=== PATIENT | male | born 1960 ===

== ENCOUNTER 2017-11-28 18:31 | Observation (INO) | payer BC ==
[2017-11-28] MEDS ORDERED: Sodium Chloride 0.9% 1,000 ML IV STA ×2 (18:42→20:27)
[2017-11-28 19:11] LABS: BASO # 0.04 K/mm3 (0.0-2.0); BASO % 0.7 % (0.0-3.0); GRAN # 3.21 (1.4-6.5); GRAN % 56.2 % (50.0-68.0); LYMPH # 2.1 (1.2-3.4); LYMPH % 36.5 % (22.0-35.0); MEAN CELL VOLUME 92.9 fl (80.0-105.0); MEAN CORPUSCULAR HGB CONC 35.5 g/dl (31.0-37.0); MEAN PLATELET VOLUME 10.8 fl (7.0-11.0); MONO # 0.4 (0.1-0.6); MONO % 6.6 % (1.0-6.0); RBC 4.24 10^6/uL (3.5-6.1); RED CELL DISTRIBUTION WIDTH 13.4 % (11.5-14.5); WHITE BLOOD COUNT 5.7 10^3/ul (4.5-11.0)
[2017-11-28 19:22] LABS: ALB/GLOB RATIO 1.4 (1.1-1.8); ALBUMIN 5.3 g/dL (3.0-4.8); ALT/SGPT 118 U/L (7-56); AST/SGOT 111 U/L (17-59); BLOOD UREA NITROGEN 19 mg/dL (7-21); CALCIUM 8.5 mg/dL (8.4-10.5); GFR AFRICAN-AMERICAN > 60; GFR NON-AFRICAN AMERICAN > 60
[2017-11-28 19:24] LABS: INR 0.98 (0.93-1.08); PARTIAL THROMBOPLASTIN TIME 29.4 Seconds (25.1-36.5); PROTHROMBIN TIME 11.2 SECONDS (9.4-12.5)
[2017-11-28] MEDS ORDERED: Multivitamin (MVI) 10 ML, Thiamine 100 MG, Folic Acid 1 MG in Sodium Chloride 0.9% 1,00... IV ONE (19:29)
[2017-11-28 19:33] LABS: TROPONIN I 0.02 ng/mL
--- NOTE | 2017-11-28 21:03 | ED PDOC ---
"Arrival/HPI - General Chief Complaint: GI Problem Time Seen by Provider: 11/28/17 18:33 Historian: Patient - History of Present Illness Narrative History of Present Illness (Text): 11/28/17 21:00 57yr old male presents today with chest pain and vomiting. pt states he has been drinking for the past 3 days and hasnt been eating anything. pt states he has been depressed and doesnt want to live anymore. pt states he hasnt eaten in 3 days. pt denies fever/chills. denies abdominal pain. pt states he drank a pint of alcohol today. no dizziness or weakness. pt denies urinary symptoms. no back pain. pt complaining of nausea and vomiting. no trauma or injury. pt denies vomiting blood. denies bloody stools. no other complaints . Time/Duration: Other (7am) Quality: Pressure (in chest) Severity Level: Mild Past Medical History - Provider Review Nursing Documentation Reviewed: Yes - Travel History Have you recently traveled outside [place] w/in the past 3 mons?: No - Tetanus Immunization Tetanus Immunization: Unknown - Cardiac Hx Cardiac Disorders: Yes Hx Hypertension: Yes - Pulmonary Hx Respiratory Disorders: No - Neurological Hx Neurological Disorder: No - HEENT Hx HEENT Disorder: No - Renal Hx Renal Disorder: No - Endocrine/Metabolic Hx Endocrine Disorders: Yes Hx Diabetes Mellitus Type 2: Yes - Hematological/Oncological Hx Blood Disorders: No - Integumentary Hx Dermatological Disorder: No - Musculoskeletal/Rheumatological Hx Musculoskeletal Disorders: No - Gastrointestinal Hx Gastrointestinal Disorders: No - Genitourinary/Gynecological Hx Genitourinary Disorders: No - Psychiatric Hx Psychophysiologic Disorder: No Hx Substance Use: No - Surgical History Other/Comment: FACIAL Family/Social History - Physician Review Nursing Documentation Reviewed: Yes Family/Social History: Unknown Family HX Smoking Status: Never Smoked Hx Alcohol Use: Yes Frequency of alcohol use: Daily Hx Substance Use: No Allergies/Home Meds Allergies/Adverse Reactions: Allergies No Known Allergies Allergy (Verified 11/28/17 18:33) Home Medications: Home Meds Medication Instructions Recorded Confirmed Unobtainable 11/28/17 11/28/17 Review of Systems - Review of Systems Constitutional: absent: Fatigue, Fevers ENT: absent: Sore Throat, Sinus Congestion Respiratory: absent: SOB, Cough Cardiovascular: Chest Pain. absent: Palpitations, Syncope Gastrointestinal: Nausea, Vomiting. absent: Abdominal Pain, Constipation, Diarrhea Genitourinary Male: absent: Dysuria, Frequency, Hematuria, Urinary Output Changes Musculoskeletal: absent: Arthralgias, Back Pain, Neck Pain Skin: absent: Rash, Pruritis Neurological: absent: Headache, Dizziness Psychiatric: Depression, Suicidal Ideation. absent: Anxiety Physical Exam Vital Signs Reviewed: Yes Vital Signs Temp Pulse Resp BP Pulse Ox 11/28/17 21:13 99 H 18 146/81 100 11/28/17 18:38 98.7 F 110 H 23 147/77 100 Temperature: Afebrile Blood Pressure: Normal Pulse: Tachycardic Respiratory Rate: Normal Appearance: Positive for: Well-Appearing, Non-Toxic, Comfortable Pain Distress: None Mental Status: Positive for: Alert and Oriented X 3 - Systems Exam Head: Present: Atraumatic Pupils: Present: PERRL Extroacular Muscles: Present: EOMI Conjunctiva: Present: Injected Mouth: Present: Moist Mucous Membranes Neck: Present: Normal Range of Motion, Trachea Midline Respiratory/Chest: Present: Clear to Auscultation, Good Air Exchange. No: Respiratory Distress, Accessory Muscle Use, Wheezes, Rhonchi, Tachypneic Cardiovascular: Present: Tachycardic. No: Murmurs Abdomen: No: Tenderness, Distention, Normal Bowel Sounds, Rebound, Guarding Back: Present: Normal Inspection. No: CVA Tenderness, Midline Tenderness, Paraspinal Tenderness Upper Extremity: Present: Normal ROM Lower Extremity: Present: Normal ROM Neurological: Present: GCS=15, Speech Normal Skin: Present: Warm, Dry Psychiatric: Present: Alert, Oriented x 3, Depressed Mood Medical Decision Making ED Course and Treatment: 11/28/17 21:04 57yr old male with nausea and vomiting and chest pain s/p drinking ETOH and not eating for 3 days. pt immediately placed on 1;1 for SI. fingerstick; 130 ekg; sinus tachycardia with PVCs at [address] elevations normal axis QTc 506 cbc; wnl cmp; glucose 142 trop; 0.02 ETOH; 274 cxr; no infiltrate, no effusion, no free air, no widened mediastinum Case discussed in depth with dr. mendez. pt with anion gap 37, c02 15; will check ABG. UA: pending ABG: lactate: pending ; respiratory therapist unable to get ABG at this time. pt given 2 doses of zofran, 10mg of reglan to control nausea and vomiting. 1mg ativan IV given 11/28/17 21:59 pt reassessment; pt feeling much better. vitals stable. case discussed with dr. Nair; accepts admission for alcoholic ketoacidosis, intractable vomiting, chest pain, pending withdrawals,depression consult: dr. oglesby, dr. dominique, dr. ashby. abd pelvis ct; FINDINGS: Right lower lung hazy opacity. Right lower lung platelike atelectasis. The liver is decreased in attenuation consistent with fatty infiltration. The spleen, pancreas, adrenals are normal. No gallstones identified. Bilateral nonspecific perinephric stranding. Tiny 6 mm exophytic left renal lesion too small to accurately characterize, however probable cyst. The bowel appears normal. DAIJA ABREU | Final Radiology Report CONFIDENTIALITY STATEMENT This report is intended only for use by the referring physician, and only in accordance with law. If you received this in error, call [phone]. Page 2 of 2 A normal appendix is identified coronal images 54 through 56. No aortic aneurysm or dissection. IMPRESSION: Possible early developing right lower lung infiltrate. Clinical correlation recommended. blood cultures added. rocephin and zithromax given IV impression; alcoholic ketoacidosis, intractable vomiting, chest pain, pending withdrawals, depression admit to tele. Reassessment Condition: Re-examined, Improved - Lab Interpretations Lab Results: 11/28/17 18:59 11/28/17 18:59 Lab Results 11/28/17 21:16: Urine Color Yellow, Urine Appearance Clear, Urine pH 6.0, Ur Specific [place] 1.025, Urine Protein 100 H, Urine Glucose (UA) Negative, Urine Ketones 40 H, Urine Blood Small H, Urine Nitrate Negative, Urine Bilirubin Small H, Urine Urobilinogen 0.2, Ur Leukocyte Esterase Negative, Urine RBC 0 - 2 , Urine WBC Negative, Ur Epithelial Cells 0 - 2 11/28/17 18:59: Lipase 86 11/28/17 18:59: WBC 5.7 D, RBC 4.24, Hgb 14.0, Hct 39.4 L, MCV 92.9, MCH 33.0, MCHC 35.5, RDW 13.4, Plt Count 229, MPV 10.8, Gran % 56.2, Lymph % (Auto) 36.5 H , Owen % (Auto) 6.6 H, Eos % (Auto) 0.0 L, Baso % (Auto) 0.7, Gran # 3.21, Lymph # (Auto) 2.1, Owen # (Auto) 0.4, Eos # (Auto) 0.0, Baso # (Auto) 0.04 11/28/17 18:59: Alcohol, Quantitative 274 H 11/28/17 18:59: Sodium 141, Potassium 3.7, Chloride 94 L, Carbon Dioxide 15 L, Anion Gap 37 H, BUN 19, Creatinine 1.2, Est GFR ( Amer) > 60, Est GFR ( Non-Af Amer) > 60, Random Glucose 142 H, Calcium 8.5, Total Bilirubin 0.9, AST 111 H, ALT 118 H, Alkaline Phosphatase 82, Lactate Dehydrogenase 601, Total Creatine Kinase 459 H, CK-MB (CK-2) 2.0, CK-MB (CK-2) % Cancelled, Troponin I 0.02, Total Protein 9.0 H, Albumin 5.3 H, Globulin 3.8, Albumin/Globulin Ratio 1.4 11/28/17 18:59: PT 11.2, INR 0.98, APTT 29.4 11/28/17 18:58: POC Glucose (mg/dL) 130 H - RAD Interpretation Radiology Orders: 11/28/17 18:41 CHEST PORTABLE [RAD] Stat - Medication Orders Current Medication Orders: Ceftriaxone Sodium (Rocephin 1 Gram Ivpb) 1 gm in 100 mls @ 200 mls/hr IVPB STAT STA PRN Reason: Protocol Stop: 11/29/17 00:27 Azithromycin (Zithromax 500mg In Ns) 500 mg in 250 mls @ 167 mls/hr IVPB STAT STA PRN Reason: Protocol Stop: 11/29/17 01:27 Discontinued Medications Aspirin (Aspirin) 325 mg PO STAT STA Stop: 11/28/17 22:14 Sodium Chloride (Sodium Chloride 0.9%) 1,000 mls @ 999 mls/hr IV .Q1H1M STA Stop: 11/28/17 19:42 Last Admin: 11/28/17 19:05 Dose: 999 mls/hr eMAR Start Stop Document 11/28/17 19:05 RD (Rec: 11/28/17 19:05 RD [id number]) Intravenous Solution Start Date 11/28/17 Start Time 19:05 End Date 11/28/17 End time 20:05 Total Infusion Time 60 Multivitamins/Vitamin C 10 ml/Thiamine HCl 100 mg/ Folic Acid 1 mg/ Sodium Chloride 1,011.2 mls @ 1,000 mls/hr IV .Q1H1M ONE Stop: 11/28/17 20:29 Last Admin: 11/28/17 20:20 Dose: 1,000 mls/hr eMAR Start Stop Document 11/28/17 20:20 SH (Rec: 11/28/17 20:20 SH [id number]) Intravenous Solution Start Date 11/28/17 Start Time 20:20 Sodium Chloride (Sodium Chloride 0.9%) 1,000 mls @ 999 mls/hr IV .Q1H1M STA Stop: 11/28/17 21:27 Last Admin: 11/28/17 22:21 Dose: 999 mls/hr eMAR Start Stop Document 11/28/17 22:21 CARMEN (Rec: 11/28/17 22:21 CARMEN [id number]) Intravenous Solution Start Date 11/28/17 Start Time 22:21 End Date 11/28/17 End time 23:21 Total Infusion Time 60 Metoclopramide HCl (Reglan) 10 mg IVP STAT STA Stop: 11/28/17 20:28 Last Admin: 11/28/17 22:20 Dose: 10 mg IVP Administration Document 11/28/17 22:20 CARMEN (Rec: 11/28/17 22:20 CARMEN [id number]) Charges for Administration # of IVP Administrations 1 Ondansetron HCl (Zofran Inj) 4 mg IVP STAT STA Stop: 11/28/17 18:41 Last Admin: 11/28/17 19:04 Dose: 4 mg IVP Administration Document 11/28/17 19:04 RD (Rec: 11/28/17 19:04 RD [id number]) Charges for Administration # of IVP Administrations 1 Ondansetron HCl (Zofran Inj) 4 mg IVP STAT STA Stop: 11/28/17 19:54 Last Admin: 11/28/17 20:12 Dose: 4 mg IVP Administration Document 11/28/17 20:12 SH (Rec: 11/28/17 20:12 [id number]) Charges for Administration # of IVP Administrations 1 Pantoprazole Sodium (Protonix Inj) 40 mg IVP STAT STA Stop: 11/28/17 18:41 Last Admin: 11/28/17 19:04 Dose: 40 mg IVP Administration Document 11/28/17 19:04 RD (Rec: 11/28/17 19:04 RD [id number]) Charges for Administration # of IVP Administrations 1 Disposition/Present on Arrival - Present on Arrival Any Indicators Present on Arrival: Yes History of DVT/PE: No History of Uncontrolled Diabetes: Yes Urinary Catheter: No History of Decub. Ulcer: No History Surgical Site Infection Following: None - Disposition Have Diagnosis and Disposition been Completed?: Yes Diagnosis: Alcoholic ketoacidosis, Chest pain, Depression Disposition: HOSPITALIZED Disposition Time: 21:12 Patient Plan: Admission Patient Problems: Current Active Problems Problem Status Onset Alcoholic ketoacidosis Acute Chest pain Acute Depression Acute Condition: FAIR"
[2017-11-28 21:22] LABS: URINE BILIRUBIN SMALL (NEGATIVE); URINE BLOOD SMALL (NEGATIVE); URINE GLUCOSE (UA) NEGATIVE (NEGATIVE); URINE LEUKOCYTE ESTERASE NEGATIVE Leu/uL (NEGATIVE); URINE PROTEIN 100 mg/dL (<30 mg/dL); URINE UROBILINOGEN 0.2 E.U./dL (<1 E.U./dL)
[2017-11-28 21:24] LABS: URINE APPEARANCE CLEAR (CLEAR); URINE COLOR YELLOW (YELLOW)
[2017-11-28 21:27] LABS: URINE EPITHELIAL CELLS 0 - 2 /hpf (0-5); URINE RBC 0 - 2 /hpf (0-2); URINE WBC NEGATIVE /hpf (0-6)
--- NOTE | 2017-11-28 23:54 | CT ---
EXAM: CT Abdomen and Pelvis Without Intravenous Contrast EXAM DATE/TIME: 11/28/2017 10:31 PM CLINICAL HISTORY: 57 years old, male; Signs and symptoms; Vomiting; Patient HX: Vomiting ETOH; Additional info: Intractable vomiting TECHNIQUE: Axial computed tomography images of the abdomen and pelvis without intravenous contrast. All CT scans at this facility use one or more dose reduction techniques, viz.: automated exposure control; ma/kV adjustment per patient size (including targeted exams where dose is matched to indication; i.e. head); or iterative reconstruction technique. Coronal and sagittal reformatted images were created and reviewed. COMPARISON: No relevant prior studies available. FINDINGS: Right lower lung hazy opacity. Right lower lung platelike atelectasis. The liver is decreased in attenuation consistent with fatty infiltration. The spleen, pancreas, adrenals are normal. No gallstones identified. Bilateral nonspecific perinephric stranding. Tiny 6 mm exophytic left renal lesion too small to accurately characterize, however probable cyst. The bowel appears normal. A normal appendix is identified coronal images 54 through 56. No aortic aneurysm or dissection. IMPRESSION: Possible early developing right lower lung infiltrate. Clinical correlation recommended.
[2017-11-28] MEDS ORDERED: Azithromycin 500MG/NS 250ml 500 MG/250 ML BAG IVPB STA (23:58)
[2017-11-28] MEDS ORDERED: cefTRIAXone 1 gm 1 GM/100 ML BAG IVPB STA (23:58)
--- NOTE | 2017-11-29 08:24 | CP.PCM.CON ---
<Tran Bryant - Last Filed: 11/29/17 13:16> History of Present Illness - History of Present Illness History of Present Illness: Initial PGY4 GI Consult Note Raffaele Bird is a 57M w/ hx of DM and HTN who presented to the ED due to depression and intractable vomiting. Pt states that he has been depressed for the past 3 weeks and had started consuming 1 pint of alcohol daily. He notes no consumption of food in the last 3 days prior to arrival to the ED. He denied any abd pain. He noted that his emesis was bilous and non-bloody including coffee-grounds. Pt states that prior to 3 weeks ago, he only drank socially. He denies any previous colonoscopy or endoscopy. He denies any admission for liver related or pancreas related issues. He denies any melena or bright red blood per rectum. He is currently alert and oriented x3 and denies any further episodes of emesis since admission. PMHx: DM, HL, HTN? PSHx: Denies Social Hx: 1 pint of vodka daily for 3 weeks, denies smoking or illicit drug use Family Hx: Reviewed; denies any GI malignancy Endo Hx: None ROS: 12 point ROS conducted, neg other than above Past Patient History - Tetanus Immunizations Tetanus Immunization: Unknown - Past Social History Smoking Status: Never Smoked - CARDIAC Hx Cardiac Disorders: Yes Hx Hypertension: Yes - PULMONARY Hx Respiratory Disorders: No - NEUROLOGICAL Hx Neurological Disorder: No - HEENT Hx HEENT Problems: No - RENAL Hx Chronic Kidney Disease: No - ENDOCRINE/METABOLIC Hx Endocrine Disorders: Yes Hx Diabetes Mellitus Type 2: Yes - HEMATOLOGICAL/ONCOLOGICAL Hx Blood Disorders: No - INTEGUMENTARY Hx Dermatological Problems: No - MUSCULOSKELETAL/RHEUMATOLOGICAL Hx Musculoskeletal Disorders: No Hx Falls: No - GASTROINTESTINAL Hx Gastrointestinal Disorders: No - GENITOURINARY/GYNECOLOGICAL Hx Genitourinary Disorders: No - PSYCHIATRIC Hx Psychophysiologic Disorder: No - SURGICAL HISTORY Hx Surgeries: No Other/Comment: FACIAL Meds Allergies/Adverse Reactions: Allergies Allergy/AdvReac Type Severity Reaction Status Date / Time No Known Allergies Allergy Verified 11/28/17 18:33 Physical Exam - Constitutional Appears: Well, No Acute Distress - Head Exam Head Exam: ATRAUMATIC, NORMOCEPHALIC - Eye Exam Eye Exam: Normal appearance - ENT Exam ENT Exam: Mucous Membranes Moist, Normal Exam - Neck Exam Neck exam: Positive for: Normal Inspection - Respiratory Exam Respiratory Exam: Clear to Auscultation Bilateral, NORMAL BREATHING PATTERN. absent: Rales, Rhonchi, Wheezes, Respiratory Distress - Cardiovascular Exam Cardiovascular Exam: REGULAR RHYTHM, +S1, +S2 - GI/Abdominal Exam GI & Abdominal Exam: Normal Bowel Sounds, Soft. absent: Diminished Bowel Sounds , Distended, Guarding, Hernia, Organomegaly, Pulsatile Mass, Rebound, Rigid, Tenderness - Extremities Exam Extremities exam: Negative for: joint swelling, pedal edema - Neurological Exam Neurological exam: Alert, Oriented x3 - Psychiatric Exam Psychiatric exam: Normal Affect, Normal Mood - Skin Skin Exam: Dry, Intact, Normal Color, Warm Results - Vital Signs Recent Vital Signs: Last Vital Signs Temp 98.3 F 11/29/17 06:00 Pulse 100 H 11/29/17 06:00 Resp 18 11/29/17 06:00 BP 138/76 11/29/17 06:00 Pulse Ox 97 11/29/17 06:00 - Labs Result Diagrams: 11/28/17 18:59 11/28/17 18:59 Labs: Laboratory Results - last 24 hr 11/29/17 11/29/17 11/29/17 00:08 00:35 07:51 POC Glucose (mg/dL) 93 87 Blood Type A POSITIVE Antibody Screen Negative BBK History Checked No verified bt Assessment & Plan - Assessment and Plan (Free Text) Assessment: Raffaele Bird is a 57M w/ hx of DM who presents to the ER with complaints of depression and intractable vomiting Tranaminemia likely multifactorial: rhabdo, etoh; r/o viral hep and autoimmune Alcohol intoxication Alcohol abuse Depression Plan: -watch for alcohol withdrawl -feed as tolerated, would check phos and Mg to watch for refeeding syndrome -alcohol withdrawl protocol -will send of viral hep and autoimmune serologies -abd CT noted: possible PNA and fatty infil of liver -continue to IV hydrate -consulted on alcohol cessation -recommend psych consult -will need oupt screening colonoscopy Will D/W Dr. Washburn <Leyla Washburn - Last Filed: 11/29/17 18:50> Meds - Medications Medications: Current Medications Aspirin (Aspirin Chewable) 81 mg PO DAILY [facility] Last Admin: 11/29/17 12:27 Dose: 81 mg Chlordiazepoxide (Librium) 25 mg PO Q8 PRN; Protocol PRN Reason: Agitation Enoxaparin Sodium (Lovenox) 40 mg SC DAILY [facility] PRN Reason: Protocol Last Admin: 11/29/17 12:27 Dose: 40 mg Escitalopram Oxalate (Lexapro) 5 mg PO DAILY [facility] Folic Acid 1 mg/ Thiamine HCl 100 mg/ Multivitamins/Vitamin C 10 ml/ Dextrose 1 ,011.2 mls @ 50 mls/hr IV .[id number] [facility] Last Admin: 11/29/17 12:38 Dose: 50 mls/hr Ceftriaxone Sodium (Rocephin 1 Gram Ivpb) 1 gm in 100 mls @ 100 mls/hr IVPB DAILY [facility] PRN Reason: Protocol Last Admin: 11/29/17 12:27 Dose: 100 mls/hr Azithromycin (Zithromax 500mg In Ns) 500 mg in 250 mls @ 167 mls/hr IVPB DAILY [facility] PRN Reason: Protocol Last Admin: 11/29/17 13:25 Dose: 167 mls/hr Metoprolol Tartrate (Lopressor) 12.5 mg PO BID [facility] Last Admin: 11/29/17 17:18 Dose: 12.5 mg Ondansetron HCl (Zofran Inj) 4 mg IVP Q6H PRN PRN Reason: Nausea/Vomiting Results - Vital Signs Recent Vital Signs: Last Vital Signs Temp 98.3 F 11/29/17 12:00 Pulse 100 H 11/29/17 14:00 Resp 18 11/29/17 12:00 BP 133/77 11/29/17 12:00 Pulse Ox 97 11/29/17 06:00 - Labs Result Diagrams: 11/28/17 18:59 11/28/17 18:59 Labs: Laboratory Results - last 24 hr 11/29/17 11/29/17 11/29/17 00:08 00:35 07:51 D-Dimer, Quantitative POC Glucose (mg/dL) 93 87 IgG Hepatitis A IgM Ab Hep Bs Antigen Hep Bs Antibody Hep B Core IgM Ab Hepatitis C Antibody Blood Type A POSITIVE Blood Type Confirm Antibody Screen Negative BBK History Checked No verified bt 11/29/17 11/29/17 11/29/17 08:10 09:00 09:00 D-Dimer, Quantitative POC Glucose (mg/dL) IgG 1033.6 Hepatitis A IgM Ab Negative Hep Bs Antigen Negative Hep Bs Antibody Hep B Core IgM Ab Negative Hepatitis C Antibody Negative Blood Type Blood Type Confirm A POSITIVE Antibody Screen BBK History Checked 11/29/17 11/29/17 11/29/17 09:00 11:53 12:45 D-Dimer, Quantitative 255 H POC Glucose (mg/dL) 124 H IgG Hepatitis A IgM Ab Hep Bs Antigen Hep Bs Antibody Negative Hep B Core IgM Ab Hepatitis C Antibody Blood Type Blood Type Confirm Antibody Screen BBK History Checked 11/29/17 17:01 D-Dimer, Quantitative POC Glucose (mg/dL) 173 H IgG Hepatitis A IgM Ab Hep Bs Antigen Hep Bs Antibody Hep B Core IgM Ab Hepatitis C Antibody Blood Type Blood Type Confirm Antibody Screen BBK History Checked Attending/Attestation - Attestation I have personally seen and examined this patient.: Yes I have fully participated in the care of the patient.: Yes I have reviewed all pertinent clinical information: Yes Notes (Text): 11/29/17 18:46 57 yr old M with history of DM who presents to the ER with complaints of depression and intractable vomiting admitted with alcohol intoxication and elevated LFT likely due to intoxication. Councelling regarding alcohol dependance and abuse and trend daily LFT. Regular diet as tolerated and vitamin repletion. Outpatient colonoscopy. Will sign off. Thank you for letting us participate in the care of your patient
--- NOTE | 2017-11-29 11:23 | RAD ---
HISTORY: Vomiting COMPARISON: Comparison chest 10/04/2017 FINDINGS: LUNGS: No active pulmonary disease. PLEURA: No significant pleural effusion identified, no pneumothorax apparent. CARDIOVASCULAR: Normal. OSSEOUS STRUCTURES: No significant abnormalities. VISUALIZED UPPER ABDOMEN: Normal. OTHER FINDINGS: None. IMPRESSION: No active disease.
[2017-11-29 11:49] LABS: HEPATITIS B SURFACE AG Negative (NEGATIVE)
[2017-11-29 11:55] LABS: HEPATITIS A IGM NEGATIVE (NEGATIVE); HEPATITIS B CORE AB NEGATIVE (NEGATIVE)
[2017-11-29 12:07] LABS: HEPATITIS C ANTIBODY NEGATIVE (NEGATIVE)
[2017-11-29] MEDS: Enoxaparin 40 mg Syringe SC SCH (12:27)
[2017-11-29] MEDS: cefTRIAXone 1 gm 1 GM/100 ML BAG IVPB SCH (12:27)
[2017-11-29] MEDS: Folic Acid 1 MG, Thiamine 100 MG, Multivitamin (MVI) 10 ML in Dextrose 5% In Water 1,00... IV SCH (12:38)
[2017-11-29] MEDS: Azithromycin 500MG/NS 250ml 500 MG/250 ML BAG IVPB SCH (13:25)
--- NOTE | 2017-11-29 17:09 | CARD ---
APPROVED REPORT EKG Measurement Heart [id number] <Conclusion> Sinus tachycardia with occasional premature ventricular complexes Nonspecific T wave abnormality Abnormal ECG
[2017-11-29 19:37] LABS: BARBITURATES, UR NEGATIVE (NEGATIVE); BENZODIAZEPINES, UR NEGATIVE (NEGATIVE); OPIATES, UR NEGATIVE (NEGATIVE); PHENCYCLIDINE, UR NEGATIVE (NEGATIVE)
--- NOTE | 2017-11-29 20:18 | HP ---
HISTORY OF PRESENT ILLNESS: I know Raffaele well from the office. He comes in after drinking lots of alcohol for the past 3 days. He has not eaten anything. He has been very depressed. Does not want to live anymore. He is now having intractable nausea and vomiting. He has been drinking a pint of alcohol daily, may be more. He is not in a good state mentally. PAST MEDICAL HISTORY: He has a past medical history of hypertension, diabetes. He had facial surgery in the past. FAMILY HISTORY: Hypertension and diabetes in the family. SOCIAL HISTORY: Never smoked. He does drink. He is an alcoholic. No substance abuse. ALLERGIES: NO KNOWN DRUG ALLERGIES. MEDICATIONS: He does not remember the medications at this time. REVIEW OF SYSTEMS: He is tired. He is weak. He is depressed. No acute vision or hearing changes. No sore throat. No shortness of breath or cough. Does have some chest discomfort. No palpitations now, but he had them earlier. He had nausea and vomiting, abdominal discomfort. No constipation or diarrhea. No problems urinating. No arthralgias or back pain. No rashes or ulcers. No headaches or dizziness. He is very depressed, suicidal, not doing well. PHYSICAL EXAMINATION: VITAL SIGNS: 98.7 temp; 110 pulse, it has been up to 120 now, I put him on metoprolol; respiratory rate is 23; 147/77 blood pressure, 100% O2 sat. GENERAL: He is alert and oriented x3. Depressed. Not in a good state of mind. HEENT: Extraocular muscles are intact. Pupils reactive to light. Throat is moist. NECK: Supple. HEART: Regular rate, tachy. LUNGS: Decreased breath sounds, but clear to auscultation. No wheezes, rhonchi or rales. Chest x-ray shows an early pneumonia. ABDOMEN: Soft, nontender. Positive bowel sounds. EXTREMITIES: Have no edema. NEUROLOGIC: GCS is 15. Cranial nerves II through XII grossly intact . Very tired, not expressive. He is alert and oriented x3. Depressed mood. SKIN: Warm and dry. No apparent rashes. LYMPHATICS: Thyroid midline. He is having a bunch of issues. LABORATORY DATA: He has a 274 alcohol level. He has a urine which showed negative. He has a 141 sodium, potassium 3.7, BUN 19, creatinine 1.2, GFR is greater than 60, sugar is 87, calcium is 8.5, total bili is 0.9, AST is 111, ALT is 118, and alk phos 82. Total creatine kinase is 459. Troponin I is 0.02. Total protein is 9, lipase is 86. INR is 0.98. He has got a 5.7 white count, 14 hemoglobin, 39.4 hematocrit with 229 platelets. He has an abdomen and pelvis CAT scan, which showed early developing right lower lobe infiltrate. IMPRESSION: He going to have consults with Cardiology, Gastroenterology and Psychiatry. He will be on Rocephin, Zithromax, IV fluids, banana bag, Lexapro, Librium, Zofran. Hopefully, he will improve. We will check his labs. Raffaele Bird has intractable nausea and vomiting, alcohol abuse, depression, tachycardia and pneumonia, right lower lobe. Sourav Nair DO
--- NOTE | 2017-11-29 23:09 | CON ---
CARDIOLOGY CONSULTATION REASON FOR CONSULTATION: Chest pain. HISTORY OF PRESENT ILLNESS: History was obtained from the patient and his at the bedside. The patient is a [id number] male who has been for the past 33 years, and now he has marital problems, he lost his job and he went on a drinking binge, presented because of alcohol intoxication and stated that he does not want to live anymore. He was initially placed on one-to-one watch; however, the patient reversed his intentions that he voiced earlier. The patient denied any suicidal ideation at this time. The patient denies any prior history of heart attack or stroke in the past. The patient does not recall any character of chest pain that he experienced earlier. The patient denies any associated diaphoresis or dizziness. There is no reported ventricular arrhythmia on the monitor. MEDICATIONS: The patient is on multivitamin infusion including folic acid, thiamine and vitamin C. The patient is on Lexapro 5 mg once a day, Librium 25 mg every 8 hours, Lopressor 12.5 mg twice a day, Rocephin 1 g intravenously daily, Zithromax 500 mg intravenously daily, Zofran 4 mg intravenously every 6 hours p.r.n. REVIEW OF SYSTEMS: No fever or chills. No seizures. No dizziness or syncope. SOCIAL HISTORY: Patient is , but he is going into marital problems with his . He lost his job recently, and he drinks, but he does not smoke. PHYSICAL EXAMINATION: GENERAL: The patient is a middle-aged male, who does not appear to be in acute distress. VITAL SIGNS: Blood pressure 138/76, heart rate 100, temperature 98.3, respirations 18. HEENT: Normocephalic. NECK: No JVD. CHEST: Clear. HEART: S1 and S2 regular. ABDOMEN: Soft. EXTREMITIES: No edema. LABORATORY DATA: SMA-7, sodium 141, potassium 3.7, chloride 94, CO2 of 15, glucose 142, BUN 19, creatinine 1.2. AST and ALT are 111 and 118 respectively. Lipase level is within normal limits. Hepatitis profile is negative. Alcohol level is 274 on admission. PT, PTT and INR are within normal limits. Abdomen and pelvis CT scan, possible early developing lower lobe infiltrate, clinical correlation is recommended. Chest x-ray is unremarkable. EKG reveals sinus tachycardia at the rate of 108, and PVC was noted. ASSESSMENT: 1. Chest pain, rule out myocardial infarction. 2. Rule out pulmonary infection. 3. Ethyl alcohol intoxication. 4. Uncontrolled diabetes mellitus. 5. Depression. RECOMMENDATIONS: Continue current intravenous vitamin infusion, continue Librium 25 mg every 8 hours, continue IV Rocephin and IV Zithromax, continue Lopressor 12.5 mg twice a day, start aspirin 81 mg once a day. Obtain one set of troponin and stat D-dimer. Repeat 12-lead EKG and obtain an echocardiogram. Obtain urine for drug screen. Micah Mahmood MD
[2017-11-30 06:38] VITALS: BP 141/71; PULSE 103; RESP 20; TEMP 98.2; O2SAT 97
[2017-11-30] MEDS: Folic Acid 1 MG, Thiamine 100 MG, Multivitamin (MVI) 10 ML in Dextrose 5% In Water 1,00... IV SCH (09:10)
[2017-11-30] MEDS: Enoxaparin 40 mg Syringe SC SCH (09:10)
[2017-11-30] MEDS: Azithromycin 500MG/NS 250ml 500 MG/250 ML BAG IVPB SCH (09:11)
[2017-11-30] MEDS: cefTRIAXone 1 gm 1 GM/100 ML BAG IVPB SCH (09:11)
--- NOTE | 2017-11-30 12:08 | PN ---
DATE: 11/30/2017 SUBJECTIVE: I saw him in bed. He is a little bit sluggish. He is telling me he wants to be discharged and go home today. He does not want to be in the hospital anymore. Then, he tells me the reason why he drank all this alcohol, went to this depression and suicidal thoughts was because he had a fight with his and now everything is all patched up, so he can go home again and he should not drink. There is a consult with Psychiatry and Psychiatry put him on Lexapro and antidepressant, which he does not want to take. He also has a positive D-dimer and he may need to have a CT angio. He has pneumonia on the CAT scan. He is on IV antibiotics. His last blood sugar was 176 and he is asking to be discharged. I cannot discharge him at this time. If he is going to want to discharge, he will have AMA. I am going to go up and talk with him. PHYSICAL EXAMINATION: VITAL SIGNS: He has a 98.2 temperature, 103 pulse, 141/71 blood pressure, 20 respiratory rate, 97% O2 sat on room air. HEENT: His head is atraumatic, normocephalic. HEART: Regular rate. LUNGS: Decreased breath sounds, but clear. ABDOMEN: Soft. EXTREMITIES: No edema. ASSESSMENT AND PLAN: Clinically, he is improving. On paper, the numbers are not good. He had a whole bunch of issues from depression, suicidal thoughts, alcohol abuse. He has tachycardia. He had intractable nausea and vomiting, hyperglycemia, pneumonia and his marijuana and alcohol were found in his drug screen. I will talk to him about not being able to discharge yet. He has another day or two of IV antibiotics and he might have to against medical advice if he wants to leave. Sourav Nair DO MTDD
--- NOTE | 2017-12-01 09:05 | CON ---
DATE: 11/29/2017 HISTORY OF PRESENT ILLNESS: The patient is a 57-year-old male with a history of depression and severe alcohol use disorder, no prior psychiatric hospitalization, no prior psychiatric followup, who was seen here on the medical floor, where he has been treated for alcohol withdrawal associated with intractable vomiting. Psychiatrist called due to the patient indicating that he is depressed and feeling hopeless. I reviewed recent notes and met with the patient at bedside. The patient is alert and oriented to month, year, location, circumstances cooperative and he is alert and shows good focus. The patient admitted that he has been depressed in the last couple of months with symptoms of anhedonia, low energy, crying spell as well as restless sleep. 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 During this time, he was drinking more because of depression and lately, has been drinking about a pint of Bacardi every 4 days for the last 2 weeks. Last drink was day prior to this presentation. The patient denies having a drinking problem except recently. Denies any prior rehabs, detoxes, withdrawal symptoms, or withdrawal hallucinations. He appears comfortable or without the stress right now, he is coherent without any delusions elicited. He does report depression as well as some anxiety and his affect is a little constricted, though goal directed. Regarding being suicidal, he adamantly denies wanting to or having any suicidal thoughts, he said that he had very low yesterday. Insight and judgement are considered to be fair at this time and he has been in good control in the unit. SOCIAL HISTORY: The patient lives with his . The patient is . The patient was born in [facility] where he was raised until 8 years old, then he came over to [place]. He is for the last 34 years and he resides with his . He has 2 grown children, a daughter and son. 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 The patient reports have a drinking problem, however, has been drinking a lot more frequently due to boredom and depression in the last couple of months, most recently he takes about a pint of Bacardi every single day, last use was the day prior to admission. He denies any history of rehabs, detoxes, or drug use. PSYCHIATRIC HISTORY: The patient denies any psychiatric history. He denies prior psychiatric outpatient or inpatient treatment. Denies any suicide attempts or medication trial. Vital signs reviewed by this provider a.m., otherwise, I did not see that medical team any medications to the patient's alcohol withdrawal symptoms. IMPRESSION: Mood disorder, not otherwise specified; rule out major depressive disorder; alcohol use disorder, severe; alcohol withdrawal. RECOMMENDATIONS: 1. This provider will start Lexapro 5 mg daily for mood and anxiety symptoms. I reviewed the indications, possible side effects therapeutically of Lexapro with the patient as well as dosing ranges and the patient is in agreement with this medication. I also hospitalization and the patient defers any intervention at this time. The patient should be given followup with [facility] once he is medically stabilized, so he can follow up and continue with his psychiatric medications. 2. Medical team should be treating the patient's alcohol withdrawal. This provider strongly recommended as well as providing the patient with vitamin tabs proven medically necessary considering his presentation. 3. Psychiatry will sign off at this time as there are no psychiatric issues. I spoke with nurse this morning, one-to-one could be discontinued as he is not a danger to himself or others. Ronan Meehan MD
[2017-12-02 10:42] LABS: CERULOPLASMIN 19 mg/dL (18-36)
== END 2017-11-30 10:01 | disposition left against medical advice (07) ==
LOC: ED 18:31 → ERH 21:56 → 2RSO 11-29 00:55
PROVIDERS: ADMIT Family Medicine; ATTEND Family Medicine
DX: E87.2 Acidosis (principal); F10.229 Alcohol dependence with intoxication, unspecified; F41.9 Anxiety disorder, unspecified; E11.65 Type 2 diabetes mellitus with hyperglycemia; I10 Essential (primary) hypertension; J18.9 Pneumonia, unspecified organism; R45.851 Suicidal ideations; Z63.0 Problems in relationship with spouse or partner; F12.90 Cannabis use, unspecified, uncomplicated; F32.89 Other specified depressive episodes; Z82.49 Family history of ischemic heart disease and other diseases of the circulatory system; Z83.3 Family history of diabetes mellitus; F39 Unspecified mood [affective] disorder
CPT/HCPCS: 71045; 74176; 80053; 80074; 81001; 82390; 82550; 82553; 82784; 82948; 83615; 83690; 84484; 85025; 85378; 85610; 85730; 86039; 86255; 86376; 86706; 86850; 86900; 87040; 93005; 96361; 96365; 96368; 96372; 96375; 96376; 99285; C9113; G0378; G0480; J0456; J0696; J1650; J2405; J2765; J3411; J7030; J7070

== ENCOUNTER 2018-05-16 18:58 | Observation (INO) | payer BC ==
[2018-05-16 19:12] VITALS: BMI 24.3
[2018-05-16] MEDS ORDERED: Dextrose 50% SYRINGE Inj (50 ml) ONE (19:28)
[2018-05-16] MEDS ORDERED: Dextrose 50% SYRINGE Inj (50 ml) IVP STA ×2 (19:32→23:06)
[2018-05-16] MEDS ORDERED: Dextrose 5%/0.9% NS 1,000 ML IV SCH (19:45)
[2018-05-16 19:52] LABS: BASO # 0.01 K/mm3 (0.0-2.0); BASO % 0.2 % (0.0-3.0); EOS % 0.2 % (1.5-5.0); GRAN # 5.28 (1.4-6.5); GRAN % 84.4 % (50.0-68.0); HEMOGLOBIN 12.7 g/dL (14.0-18.0); LYMPH # 0.7 (1.2-3.4); LYMPH % 10.4 % (22.0-35.0); MEAN CELL VOLUME 99.2 fl (80.0-105.0); MEAN CORPUSCULAR HEMOGLOBIN 33.5 pg (25.0-35.0); MEAN CORPUSCULAR HGB CONC 33.8 g/dl (31.0-37.0); MEAN PLATELET VOLUME 11.2 fl (7.0-11.0); MONO # 0.3 (0.1-0.6); MONO % 4.8 % (1.0-6.0); RBC 3.79 10^6/uL (3.5-6.1); RED CELL DISTRIBUTION WIDTH 13.1 % (11.5-14.5); WHITE BLOOD COUNT 6.3 10^3/uL (4.5-11.0)
[2018-05-16 20:14] LABS: ALB/GLOB RATIO 1.1 (1.1-1.8); ALBUMIN 4.6 g/dL (3.0-4.8); CALCIUM 8.2 mg/dL (8.4-10.5)
--- NOTE | 2018-05-16 20:20 | ED PDOC ---
Arrival/HPI - General Historian: Patient - History of Present Illness Narrative History of Present Illness (Text): 05/16/18 20:07 57 yo M with PMH of DM, HTN and seizure d/o presents for hypoglycemia, his family found his disoriented at home and not responsive, the called 911, ALS arrived and FS was 27, patient was given 1 amp of D50 immediately and his FS ann-marie to 234. Upon arrival to the ER his FS was 57, SPRING UPHOLSTERER gave the patient 2 cups of juice. He states that he only takes glipizide 10 mg for his DM, he last took at 5 am, but reports that he barely ate today and he frequently skips meals or doesn't eat all day. He reports no fever, headache, dizziness, CP, SOB, abdo jayme pain, N/V/D, urinary symptoms. PMD Nair <Celsa Byrnes PA-C - Last Filed: 05/16/18 21:39> <Joaquín Carmen - Last Filed: 05/16/18 22:30> - General Chief Complaint: Altered Mental Status Time Seen by Provider: 05/16/18 19:19 Past Medical History - Infectious Disease Hx of Infectious Diseases: None - Tetanus Immunization Tetanus Immunization: Unknown - Cardiac Hx Cardiac Disorders: Yes Hx Hypertension: Yes - Pulmonary Hx Respiratory Disorders: No - Neurological Hx Neurological Disorder: No - HEENT Hx HEENT Disorder: No - Renal Hx Renal Disorder: No - Endocrine/Metabolic Hx Endocrine Disorders: Yes Hx Diabetes Mellitus Type 2: Yes - Hematological/Oncological Hx Blood Disorders: No - Integumentary Hx Dermatological Disorder: No - Musculoskeletal/Rheumatological Hx Musculoskeletal Disorders: No Hx Falls: No - Gastrointestinal Hx Gastrointestinal Disorders: No - Genitourinary/Gynecological Hx Genitourinary Disorders: No - Psychiatric Hx Psychophysiologic Disorder: No Hx Substance Use: No - Surgical History Other/Comment: FACIAL - Anesthesia Hx Anesthesia: No <Celsa Byrnes PA-C - Last Filed: 05/16/18 21:39> Family/Social History Family/Social History: No Known Family HX Smoking Status: Never Smoked Hx Alcohol Use: Yes Hx Substance Use: No <Celsa Byrnes PA-C - Last Filed: 05/16/18 21:39> Allergies/Home Meds <Celsa Byrnes PA-C - Last Filed: 05/16/18 21:39> <Joaquín Carmen - Last Filed: 05/16/18 22:30> Allergies/Adverse Reactions: Allergies No Known Allergies Allergy (Verified 11/28/17 18:33) Home Medications: Home Meds Medication Instructions Recorded Confirmed GlipiZIDE [Glucotrol] 10 tab PO DAILY 03/18/18 05/16/18 levETIRAcetam [Keppra] 2 tab PO DAILY 03/18/18 05/16/18 Losartan [Cozaar] 50 mg PO DAILY 05/16/18 05/16/18 Metoprolol Succinate [Kapspargo 50 mg PO DAILY 05/16/18 05/16/18 Sprinkle] Review of Systems - Review of Systems Constitutional: absent: Fatigue, Fevers Respiratory: absent: SOB, Cough Cardiovascular: absent: Chest Pain, Palpitations Gastrointestinal: absent: Abdominal Pain, Diarrhea, Vomiting Musculoskeletal: absent: Arthralgias, Back Pain, Neck Pain Skin: absent: Rash, Pruritis Neurological: absent: Headache, Dizziness <Celsa Byrnes PA-C - Last Filed: 05/16/18 21:39> Physical Exam Vital Signs Temp Pulse Resp BP Pulse Ox 05/16/18 19:12 97.4 F L 90 18 171/100 H 99 Temperature: Afebrile Blood Pressure: Hypertensive Pulse: Regular Respiratory Rate: Normal Appearance: Positive for: Well-Appearing, Non-Toxic, Comfortable Pain Distress: None Mental Status: Positive for: Alert and Oriented X 3 Finger Stick Blood Glucose: 57 - Systems Exam Head: Present: Atraumatic, Normocephalic Pupils: Present: PERRL Extroacular Muscles: Present: EOMI Conjunctiva: Present: Normal Mouth: Present: Moist Mucous Membranes Neck: Present: Normal Range of Motion Respiratory/Chest: Present: Clear to Auscultation, Good Air Exchange. No: Respiratory Distress, Accessory Muscle Use Cardiovascular: Present: Regular Rate and Rhythm, Normal S1, S2. No: Murmurs Abdomen: No: Tenderness, Distention, Peritoneal Signs Back: Present: Normal Inspection Upper Extremity: Present: Normal Inspection. No: Cyanosis, Edema Lower Extremity: Present: Normal Inspection. No: Edema Neurological: Present: GCS=15, CN II-XII Intact, Speech Normal, Motor Func Grossly Intact, Normal Sensory Function Skin: Present: Warm, Dry, Normal Color. No: Rashes Psychiatric: Present: Alert, Oriented x 3, Normal Insight, Normal Concentration <Celsa Byrnes PA-C - Last Filed: 05/16/18 21:39> Vital Signs Temp Pulse Resp BP Pulse Ox 05/16/18 21:00 92 H 18 144/90 99 05/16/18 19:12 97.4 F L 90 18 171/100 H 99 <Joaquín Carmen - Last Filed: 05/16/18 22:30> Medical Decision Making ED Course and Treatment: 05/16/18 20:20 Plan : - labs - IV - EKG - CXR - UA Repeat FS 41, patient given 1 amp of D50 here in ER. Patient advised to eat. EKG : NSR at 89 bpm, no acute ST changes. CXR : NAD. Labs reviewed, serum glucose was 42, K 3.4 On re-evaluation, patient remains AAOx3 in no acute distress. Patient notified of plan for further observation for his hypoglycemia, which he agrees to. Case d/w Dr. Nair, agrees with plan, request consult with Dr. Delgado endocrinology. FS 61, after being given 2nd amp of D50 and juice po. Patient given another 2 cups of juice to drink and encouraged to eat. - Lab Interpretations Lab Results: 05/16/18 19:25 Lab Results 05/16/18 19:25: WBC 6.3, RBC 3.79, Hgb 12.7 L, Hct 37.6 L, MCV 99.2, MCH 33.5, MCHC 33.8, RDW 13.1, Plt Count 165, MPV 11.2 H, Gran % 84.4 H, Lymph % (Auto) 10.4 L, Emery % (Auto) 4.8, Eos % (Auto) 0.2 L, Baso % (Auto) 0.2, Gran # 5.28, Lymph # (Auto) 0.7 L, Emery # (Auto) 0.3, Eos # (Auto) 0.0, Baso # (Auto) 0.01 05/16/18 19:24: POC Glucose (mg/dL) 41 L 05/16/18 19:10: POC Glucose (mg/dL) 56 L - RAD Interpretation Radiology Orders: 05/16/18 19:32 CHEST PORTABLE [RAD] Stat - Medication Orders Current Medication Orders: Dextrose/Sodium Chloride (Dextrose 5%/0.9% Ns 1000 Ml) 1,000 mls @ 150 mls/hr IV .Q6H40M LOREE Last Admin: 05/16/18 19:50 Dose: 150 mls/hr eMAR Start Stop Document 05/16/18 19:50 ROSENDO (Rec: 05/16/18 19:51 ROSENDO [id number]) Intravenous Solution Start Date 05/16/18 Start Time 19:51 Discontinued Medications Dextrose (Dextrose 50% Inj) 50 ml IVP STAT STA Stop: 05/16/18 19:33 <Celsa Byrnes PA-C - Last Filed: 05/16/18 21:39> - Lab Interpretations Lab Results: 05/16/18 19:25 05/16/18 19:25 Lab Results 05/16/18 20:28: POC Glucose (mg/dL) 61 L 05/16/18 20:03: POC Glucose (mg/dL) 89 05/16/18 19:25: Sodium 138, Potassium 3.4 L, Chloride 95 L, Carbon Dioxide 27, Anion Gap 19, BUN 19, Creatinine 2.0 H, Est GFR ( Amer) 42, Est GFR (Non- Af Amer) 35, Random Glucose 42 L* D, Calcium 8.2 L, Total Bilirubin 1.0, AST 73 H, ALT 38, Alkaline Phosphatase 65, Total Protein 8.9 H, Albumin 4.6, Globulin 4.3, Albumin/Globulin Ratio 1.1 05/16/18 19:25: WBC 6.3, RBC 3.79, Hgb 12.7 L, Hct 37.6 L, MCV 99.2, MCH 33.5, MCHC 33.8, RDW 13.1, Plt Count 165, MPV 11.2 H, Gran % 84.4 H, Lymph % (Auto) 10.4 L, Emery % (Auto) 4.8, Eos % (Auto) 0.2 L, Baso % (Auto) 0.2, Gran # 5.28, Lymph # (Auto) 0.7 L, Emery # (Auto) 0.3, Eos # (Auto) 0.0, Baso # (Auto) 0.01 05/16/18 19:24: POC Glucose (mg/dL) 41 L 05/16/18 19:10: POC Glucose (mg/dL) 56 L - RAD Interpretation Radiology Orders: 05/16/18 19:32 CHEST PORTABLE [RAD] Stat - Medication Orders Current Medication Orders: Dextrose/Sodium Chloride (Dextrose 5%/0.9% Ns 1000 Ml) 1,000 mls @ 150 mls/hr IV .Q6H40M LOREE Last Admin: 05/16/18 19:50 Dose: 150 mls/hr eMAR Start Stop Document 05/16/18 19:50 ROSENDO (Rec: 05/16/18 19:51 ROSENDO [id number]) Intravenous Solution Start Date 05/16/18 Start Time 19:51 Discontinued Medications Dextrose (Dextrose 50% Inj) 50 ml IVP STAT STA Stop: 05/16/18 19:33 Last Admin: 05/16/18 19:40 Dose: Not Given Non-Admin Reason: given already Potassium Chloride (Potassium Chloride Oral Soln) 20 meq PO STAT STA Stop: 05/16/18 20:25 Last Admin: 05/16/18 21:08 Dose: 20 meq <Joaquín Carmen - Last Filed: 05/16/18 22:30> - PA / TREE TOPPER / Resident Statement ROXANNE has reviewed & agrees with the documentation as recorded. <Celsa Byrnes PA-C - Last Filed: 05/16/18 21:39> - PA / TREE TOPPER / Resident Statement ROXANNE has reviewed & agrees with the documentation as recorded. ROXANNE has examined the patient and agrees with the treatment plan. <Joaquín Carmen - Last Filed: 05/16/18 22:30> Disposition/Present on Arrival - Present on Arrival Any Indicators Present on Arrival: No History of DVT/PE: No History of Uncontrolled Diabetes: No Urinary Catheter: No History of Decub. Ulcer: No History Surgical Site Infection Following: None - Disposition Have Diagnosis and Disposition been Completed?: Yes Disposition Time: 20:44 Patient Plan: Observation <Celsa Byrnes PA-C - Last Filed: 05/16/18 21:39> <Joaquín Carmen - Last Filed: 05/16/18 22:30> - Disposition Diagnosis: Hypoglycemia Disposition: HOSPITALIZED Patient Problems: Current Active Problems Problem Status Onset Hypoglycemia Acute Condition: STABLE
[2018-05-16] MEDS ORDERED: Potassium Chloride 20 mEq/15 ml LIQ UD PO STA (20:24)
--- NOTE | 2018-05-17 01:35 | CON ---
DATE OF CONSULTATION: 05/16/2018 ROOM: 573. HISTORY OF PRESENT ILLNESS: This is a 57-year-old male with known history of type 2 diabetes and hypertension, presenting here with a brief bout of unresponsiveness and disorientation and was found to have marked hypoglycemia with a glucose level of 27 at home and received D50 bolus injections and was taken in by the paramedics to the ER for subsequent evaluation and admission. He is being referred now for diabetic evaluation and management. PAST MEDICAL HISTORY: As mentioned above, history of type 2 diabetes, currently on glipizide given as 10 mg once daily in the morning and admits to recent variable and suboptimal oral intake with continued use of his oral hypoglycemic therapy. History of hypertension and dyslipidemia. History of generalized seizure disorder, on Keppra medication as noted. FAMILY HISTORY: Positive for hypertension and heart disease. SOCIAL HISTORY: The patient has supportive family. No known substance use. REVIEW OF SYSTEMS: Admits to generalized body weakness with progressive bouts of dizziness and lightheadedness, worse on the day of admission with a brief bout of unresponsiveness and extreme lethargy with supervening confusion and disorientation as noted. No chest pains or palpitations, but admits to episodic bouts of shortness of breath especially on exertion. His oral intake has been suboptimal with nausea, dyspepsia and vague upper abdominal pains. No recent alterations from bowel and/or urinary pattern. PHYSICAL EXAMINATION: GENERAL: This is an average built male, in no apparent distress. VITAL SIGNS: Blood pressure of 140/80; pulse of 70 beats per minute, regular; temperature 98; respirations 20; height is 5'7"; weight is 155 pounds. HEENT: Head normocephalic. Eyes anicteric with pink conjunctivae. Funduscopy not possible at this time. Ears, nose and throat otherwise normal. NECK: Supple. Thyroid gland is normal in size. No carotid bruits or cervical adenopathy. CARDIOPULMONARY: Some adynamic precordium. S1, S2 is rapid and regular. LUNGS: Clear to auscultation. ABDOMEN: Flat, soft with positive bowel sounds. EXTREMITIES: No peripheral edema. Pulses are +2 bilaterally. LABORATORY DATA: His initial chemistry showed a BUN of 19, sodium 138, potassium 3.4, chloride 95, CO2 of 27, glucose 42, and creatinine 2.0. The initial glucose was 56 mg/dL with a subsequent level of 41 and 61 mg/dL. ASSESSMENT: This is a 57-year-old male with symptomatic hypoglycemia and associated neuroglycopenic and hyperadrenergic manifestations of the same, reversed by D50 bolus injections with ongoing dextrose infusion as given. This is most likely medication induced because of recent suboptimal and variable oral intake at this time. We have to exclude any other concomitant endocrine disorders such as hypoadrenalism or hypothyroidism thereof. It is quite unlikely to have an insulinoma at this time with his current history as noted thereof. He also has underlying chronic kidney disease with progressive renal insufficiency and this in itself with also contributes to the reduced clearance of oral hypoglycemic therapy contributing to the aforementioned hypoglycemic episode. PLAN OF MANAGEMENT: We will obtain a comprehensive hormonal profile and obtain a TSH and serum cortisol level as ordered. We will also repeat the chemistries at this time and continue the dextrose infusion as given. We will hold off the resumption of any oral hypoglycemic therapy and observe his glycemic fluctuations overnight as noted. We will obtain a hemoglobin A1c to confirm his prior glycemic control as ordered. We will follow the patient with you. Vero Delgado MD
[2018-05-17 06:51] VITALS: RESP 20; O2SAT 99
[2018-05-17 07:42] LABS: ALBUMIN 3.6 g/dL (3.0-4.8); CALCIUM 7.2 mg/dL (8.4-10.5)
--- NOTE | 2018-05-17 08:55 | CARD ---
APPROVED REPORT Date of service: 05/16/2018 EKG Measurement Heart [id number] ND [id number] [id number] <Conclusion> Normal sinus rhythm Nonspecific T wave abnormality Abnormal ECG
--- NOTE | 2018-05-17 09:33 | RAD ---
HISTORY: hypoglycemia COMPARISON: Chest x-ray performed 03/18/18 TECHNIQUE: Chest, one view. FINDINGS: LUNGS: Biapical pleural thickening. No focal consolidation. Please note that chest x-ray has limited sensitivity for the detection of pulmonary masses. PLEURA: No significant pleural effusion identified. No definite pneumothorax . CARDIOVASCULAR: Heart size appears within normal limits. No significant atherosclerotic calcification present. OSSEOUS STRUCTURES: Degenerative changes. Acromioclavicular arthropathy. VISUALIZED UPPER ABDOMEN: Unremarkable. OTHER FINDINGS: None. IMPRESSION: No focal consolidation.
[2018-05-17] MEDS ORDERED: Potassium Chloride 20 mEq ER Tab PO ONE (10:11)
[2018-05-17] MEDS ORDERED: Magnesium Citrate Oral SOL (300 ml) PO ONE (11:10)
[2018-05-17] MEDS ORDERED: Calcium-Vit D 250 mg-125 Units Tab UD PO SCH (11:15)
[2018-05-17] MEDS ORDERED: Metoprolol Succinate 50 mg XL Tab PO SCH (11:15)
--- NOTE | 2018-05-17 11:56 | PN ---
DATE: 05/17/2018 ENDOCRINOLOGY FOLLOWUP NOTE LOCATION: Room 573. SUBJECTIVE: This is a 57-year-old male with recent uncontrolled type 2 diabetes presenting here with marked symptomatic hypoglycemia with continued intake of his oral hypoglycemic therapy and supervening variable and suboptimal meal portions as noted at home by the family. His glycemic levels overnight were still very low with a glucose drop of 39 mg/dL at 3 a.m. this morning and the repeat glucose levels at this morning have ranged from 78-99 mg/dL. His latest chemistry showed a BUN of 17, sodium 136, potassium 3.4, chloride 101, CO2 of 28, glucose 86 and creatinine 1.7. His TSH is 2.39. ASSESSMENT: This is a 57-year-old male with uncontrolled and decompensated type 2 diabetes presenting here with marked symptomatic hypoglycemia and associated neuroglycopenic and hyperadrenergic manifestations related to recent variable and suboptimal meal portions and continued intake of his oral hypoglycemic therapy on the outpatient. There was also a brief bout of unresponsiveness at home as witnessed by the family, for which he was given D50 bolus injections with reverse of the aforementioned. PLAN OF MANAGEMENT: We will absolutely hold off the resumption of any kind of oral hypoglycemic therapy at this time. We will continue the dextrose infusion as given and observe his glycemic fluctuations today. If hyperglycemic levels supervene, then we will start him on a very, very low-dose and short acting oral hypoglycemic therapy such as Prandin at 0.5 mg as indicated. We will obtain serial chemistries and supplement accordingly as needed. We will follow. Vero Delgado MD
--- NOTE | 2018-05-17 12:52 | HP ---
DATE OF EXAM: 05/17/2018 HISTORY OF PRESENT ILLNESS: He is a good patient of mine I have known for a while. He is a 57-year-old white male who presents, he found very disoriented at home, not responsive. His called 911. His blood sugar was 27, he was given a D5 amp, and his blood sugar went to 234, then his blood sugar dropped to 57. He had 2 cups of orange juice. He had to take glipizide 10 mg for diabetes and seems that may be he is not eating enough, so he is in the hospital for observation with hypoglycemia. PAST MEDICAL HISTORY: He has a past medical history of hypertension, diabetes, seizures, alcohol abuse in the past. PAST SURGICAL HISTORY: He has facial surgery. SOCIAL HISTORY: No smoking. Does drink alcohol. ALLERGIES: NO KNOWN DRUG ALLERGIES. MEDICATIONS: He is on Glucotrol, Keppra for seizures, Cozaar for blood pressure, metoprolol for blood pressure. REVIEW OF SYSTEMS: He is very tired when he has low blood sugar. He was unconscious, but no shortness of breath, no cough. No fevers. No chest pain or palpitations. No abdominal pain. No nausea, vomiting, constipation, diarrhea. No arthralgia, back pain, or neck pain. No skin issues or rashes or itching. No headache or dizziness. PHYSICAL EXAMINATION GENERAL: He is well appearing, nontoxic, comfortable at this time. His blood sugar was 99. At this time, positive alert and oriented x3. VITAL SIGNS: He has a 97.4 temperature, 90 pulse, 18 respiratory rate, 171/100 blood pressure, and 99% O2 sat on room air. HEENT: Head is atraumatic, normocephalic. Extraocular muscles are intact. Pupils are reactive to light. Throat is moist. NECK: Supple. HEART: Regular rate. Normal S1, S2. LUNGS: Clear to auscultation. No wheezes, rhonchi, or rales. ABDOMEN: Soft, nontender. Positive bowel sounds. No guarding. No rebound. No CVA tenderness. EXTREMITIES: No edema. He moves all four extremities well. NEUROLOGICAL: GCS of 15. Cranial nerves II through XII grossly intact. He can stick out his tongue midline. Speech is normal, smiling, happy. Feeling much better. Alert and oriented x3. SKIN: Warm and dry. No apparent rashes or ulcers appreciated. LYMPHS: Thyroid midline. No palpable appreciable lymphadenopathy. LABORATORY DATA: He has multiple tests. He has 136 sodium; potassium is 3.4, potassium is replaced; BUN is 17; creatinine 1.7; GFR is 42; sugar is 99, is 39; calcium is 7.2; magnesium is 1.1; total bili is 0.7; AST is 60; ALT is 46; alk phos is 63; total protein 7; albumin is 3.6; globulin 3.4. TSH is 2.39. He has 6.3 white count, 12.7 hemoglobin, 37.6 hematocrit, with 165,000 platelets. EKG with normal sinus rhythm. Chest x-ray with no consolidation. ASSESSMENT AND PLAN: He had consult with Dr. Love, he was on IV dextrose and discontinuing IV dextrose. His blood sugar was 99, he is not on anymore diabetes medications. We will check his blood sugars again. If they are normal x2 in the next 6 hours, I would discharge him home and tell him to hold his diabetes medications. I will continue with his blood pressure medications, seizure medications and potassium replacement. He is on observation right now. The nurses will call me later this afternoon. If he does well, I will try and discharge him later today. He was here with hypoglycemia, unresponsive with a 27 blood sugar. He has history of diabetes and hypertension. Thank you very much. Sourav Nair DO [facility]
[2018-05-17 15:33] VITALS: BP 174/100; TEMP 98.3
[2018-05-17 16:21] VITALS: PULSE 98
== END 2018-05-17 17:48 | disposition home or self-care (01) ==
LOC: ED 18:58 → ERH 20:44 → 5RSO 23:34
PROVIDERS: ADMIT Family Medicine; ATTEND Family Medicine
DX: E11.649 Type 2 diabetes mellitus with hypoglycemia without coma (principal); E11.22 Type 2 diabetes mellitus with diabetic chronic kidney disease; I12.9 Hypertensive chronic kidney disease with stage 1 through stage 4 chronic kidney disease, or unspecified chronic kidney disease; N18.9 Chronic kidney disease, unspecified; G40.409 Other generalized epilepsy and epileptic syndromes, not intractable, without status epilepticus; E78.5 Hyperlipidemia, unspecified; Z79.84 Long term (current) use of oral hypoglycemic drugs
CPT/HCPCS: 36415; 71045; 80053; 80061; 82533; 82948; 83036; 83735; 84443; 85025; 93005; 96374; 99285; G0378; J7042

== ENCOUNTER 2018-10-27 14:40 | Emergency (ER) | payer BC ==
[2018-10-27 14:41] VITALS: BMI 24.3
[2018-10-27 15:05] VITALS: BP 124/75; PULSE 90; RESP 18; TEMP 98.4; O2SAT 99
== END 2018-10-27 14:50 | disposition left against medical advice (07) ==
LOC: ED 14:40
DX: Z02.89 Encounter for other administrative examinations (principal); F10.129 Alcohol abuse with intoxication, unspecified